=== PATIENT | female | born 1990 | race Caucasian/White ===

== ENCOUNTER 2025-08-10 09:42 | Emergency (ER) | payer BC ==
[~2025-08-10] VITALS: Ht 175.3 cm; Wt 104.5 kg
[2025-08-10 10:59] LABS: LEUKOCYTE ESTERASE ,URINE NEGATIVE (Neg); NITRITES, URINE POSITIVE (Neg); OCCULT BLOOD,URINE NEGATIVE (Neg)
[2025-08-10 11:01] LABS: UA COLLECTION TYPE CLN CATCH MIDSTREAM
[2025-08-10 11:02] LABS: URINE HCG POSITIVE (NEG)
[2025-08-10 11:05] LABS: AMORPHOUS PHOSPHATES 2+
[2025-08-10 11:06] LABS: MUCUS STRANDS FEW /LPF (Neg); SQUAMOUS EPITHELIAL CELL,UR MODERATE /LPF (FEW)
[2025-08-10 11:09] VITALS: BP 130/97; PULSE 88; TEMP 98.3; O2SAT 97
[2025-08-10 11:13] VITALS: RESP 18
[2025-08-10] MEDS ORDERED: CEPH-585 PO (11:52)
--- NOTE | 2025-08-10 11:52 | Physician Documentation ---
History of Present Illness ~ Chief Complaint: Blood in Urine Stated Complaint: COMPLICATIONS Time Seen by MD: 10:54 OK to notify your PCP?: Yes Primary Medical Doctor: [facility]: [facility] Mode of Arrival: POV, Ambulatory Exam Limitations: no limitations HPI Pt presents to ED for blood in urine x 2 days. Pt also complaining of left flank pain since yesterday. Denies any fever, nausea, vomiting or diarrhea. Reports is 10-12 weeks . Has upcoming appointment with durability technician on Wednesday. Denies any vaginal bleeding or cramping. . Last Menstrual Period: May 11, 2025 Medication Reconciliation Allergies: Coded Allergies: No Known Allergies (Unverified , 08/10/25) Scheduled Cephalexin*Monohydrate* (Keflex*), 1 CAP PO Q12H Past Medical History Last Menstrual Period: May 11, 2025 Review of Systems All Other Systems at this time: Reviewed and Negative Physical Exam Vital Signs: RN Vital Signs have been reviewed: Yes, Temperature: 98.3, Source: Oral, Heart Rate: 88, Respiratory Rate: 18, BP: 130/97, Pulse Oximetry: 97, Weight: 104.500 Oxygen Flow Rate: 0 Pulse Oximetry Reflects: adequate oxygenation Physical Exam General: Alert, no distress. HEENT: No injection, moist mucous membranes. Neck: Full range of motion. Respiratory: No respiratory distress, equal chest rise and fall. Chest: No accessory muscle use. Cardiovascular: Regular rate and rhythm. Gastrointestinal: Nondistended. Extremities: Normal range of motion, no deformity. Back: No CVA tenderness. Neurologic: Oriented x4. Psychiatric: Normal mood and affect. Skin: Normal color, warm and dry. Progress Results/Orders Reviewed/noted all lab results: Yes Results/Orders Completed Orders - DEIDRE LINCOLN Cephalexin Capsule (Keflex Capsule) (08/10/25 11:50) Medications Received in ER Medications (Trade) Dose Ordered Sig/Denis Route PRN Reason Start Time Stop Time Status Last Admin Dose Admin (Keflex capsule) 500 mg ONCE ONCE PO 08/10/25 11:50 08/10/25 11:51 DC 08/10/25 11:58 500 MG Vital Signs 08/10/25 08/10/25 08/10/25 09:56 11:09 11:13 Temp 98.3 98.3 Pulse 74 88 Resp 16 18 18 B/P (MAP) 112/78 130/97 (108) Pulse Ox 98 97 O2 Flow Rate 0 0 Laboratory Tests Test 08/10/25 10:48 Urine Specimen Description Cln catch midstream Urine Color Yellow Urine Clarity Cloudy Urine pH 7.0 Urine Specific Latty 1.010 Urine Protein Negative Urine Glucose (UA) Negative Urine Ketones Negative Urine Occult Blood Negative Urine Nitrite Positive H Urine Bilirubin Negative Urine Urobilinogen 1.0 Urine Leukocyte Esterase Negative Urine RBC 0-2 Urine WBC 0-4 Urine Squamous Epithelial Cells Moderate Urine Amorphous Phosphates 2+ Urine Bacteria 2+ Urine Mucus Few Urine Culture Indicated Indicated Volume Urine Centrifuged 10 ml Urine HCG, Qualitative Positive Urine Comment Microbiology Date/Time Source Procedure Growth Status 08/10/25 11:07 Urine Clean Catch Midstream Urine Culture - Preliminary Culture received. Resulted Medical Decision Making Additional information obtaine: old records Findings Is 10-12 weeks . Reports having some blood in the urine when she wipes. Urinalysis shows she does have a UTI. She has a upcoming OB appointment next week. Started patient on Keflex. Urinary Diff Dx:Considerations: Include: Pyelonephritis, Urolithiasis, Urinary retention Genital Diff Dx:Considerations: Include: Other Departure Disposition: HOME / SELF CARE / HOMELESS Impression: Primary Impression: UTI (urinary tract infection) in in first trimester Condition: Stable Discharge Instructions: Urinary Tract Infection, Adult Additional Instructions: Continue with scheduled appointment with durability technician on Wednesday. Return back here for any new or worsening symptoms. Referrals: NO PRIMARY CARE PROVIDER (PCP) Prescriptions Cephalexin*Monohydrate* (Keflex*) 500 Mg Capsule 1 CAP PO Q12H for 7 Days, #14 CAP Prov: DEIDRE LINCOLN 08/10/25 Education Educated: Patient Educated regarding: diagnosis, treatment, prognosis, need for follow up Additional Comment Medical Screen Exam This patient recieved a medical screening examination. After reviewing the individual's medical complaints with presenting symptoms and performing an appropriate physical examination, it was determined that no immediate life- threatening emergency medical condition is present. This individual is also not a women having contractions. Signature Scribe Signature: . Attestation: Scribed for Deidre Lincoln by Deidre Mcwilliams NP . 08/10/25 18:32 Parts of this note were created using [employer] voice recognition software program. While efforts were made to correct any mistakes made by this voice recognition software program, nonsensical phrases may remain in this note. In addition, there may be errors and syntax, grammar, content and spelling. DEIDRE LINCOLN [facility] Aug 10, 2025 11:52
== END 2025-08-10 12:03 | disposition home or self-care (01) ==
LOC: ER 09:43
DX: O23.41 Unspecified infection of urinary tract in pregnancy, first trimester (principal); Z3A.12 12 weeks gestation of pregnancy
CPT/HCPCS: 81001; 81025; 87088; 99283